=== PATIENT | female | born 1940 | race Caucasian/White ===

== ENCOUNTER 2020-05-13 06:02 | Emergency (ER) | payer OTHER ==
--- NOTE | 2020-05-13 06:45 | EDPHYS ---
Physician Documentation [facility] Name: Jonathan Mcguire Age: 79 yrs Sex: Female : 1940 Arrival Date: 05/13/2020 Time: 06:07 Bed 4 Private MD: ED Physician Sagrario Oliva HPI: 05/13 06:39 This 79 yrs old Female presents to ER via Ambulatory with complaints of Wrist ma2 Injury. 06:39 The patient or guardian reports decreased range of motion, injury, pain. Onset: The ma2 symptoms/episode began/occurred suddenly, 1 week(s) ago. Associated signs and symptoms: Pertinent negatives: decreased sensation distally, fever, numbness distally, tingling distally. Compartment Syndrome negative for numbness, pain, tingling. The patient has not experienced similar symptoms in the past. fell on left hand . Historical: - Allergies: 06:19 No Known Allergies; wh - Immunization history:: Adult Immunizations up to date. - Social history:: Smoking status: Patient/guardian denies using Patient/guardian denies using alcohol, street drugs, The patient lives with family. - Family history:: not pertinent. ROS: 06:39 Constitutional: Negative for fever, chills, and weight loss. ma2 06:39 All other systems are negative. Exam: 06:39 Hand exam: is negative for abrasion, deformity, erythema, swelling, Exam is positive ma2 for pain, tenderness, Circulation is intact in all extremities. sensation intact. Compartment Syndrome exam of affected extremity: is normal. 06:39 Skin: Exam negative for abrasion, burn, diaphoresis, flushing, mottling, pallor, poor turgor, rash. 06:39 Constitutional: This is a well developed, well nourished patient who is awake, alert, and in no acute distress. Chest/axilla: Normal chest wall appearance and motion. Nontender with no deformity. No lesions are appreciated. Cardiovascular: Regular rate and rhythm with a normal S1 and S2. No gallops, murmurs, or rubs. Normal PMI, no JVD. No pulse deficits. Respiratory: Lungs have equal breath sounds bilaterally, clear to auscultation and percussion. No rales, rhonchi or wheezes noted. No increased work of breathing, no retractions or nasal flaring. Skin: Warm, dry with normal turgor. Normal color with no rashes, no lesions, and no evidence of cellulitis. Neuro: Awake and alert, GCS 15, oriented to person, place, time, and situation. Cranial nerves II-XII grossly intact. Motor strength 5/5 in all extremities. Sensory grossly intact. Cerebellar exam normal. Normal gait. Psych: Awake, alert, with orientation to person, place and time. Behavior, mood, and affect are within normal limits. Vital Signs: 06:16 BP 154 / 93; Pulse 90; Resp 18; Temp 98.1; Pulse Ox 100% ; Weight 52.16 kg; Height 5 wh ft. 2 in. (157.48 cm); Pain 5/10; 06:16 Body Mass Index 21.03 (52.16 kg, 157.48 cm) MDM: 06:11 Patient medically screened. [facility] 06:39 Differential diagnosis: dislocation, contusion, abrasion, tendonitis. Data reviewed: [facility] vital signs, nurses notes. Counseling: I had a detailed discussion with the patient and/or guardian regarding: the historical points, exam findings, and any diagnostic results supporting the discharge/admit diagnosis, the presence of at least one elevated blood pressure reading (>120/80) during this emergency department visit, the need for outpatient follow up. Response to treatment: the patient's symptoms have markedly improved after treatment. 06:39 ED course: informed about possibility of scaphoid frx and need to repeat xr in 2 weeks, steve will put her in thumb spica. 12 06:15 Order name: Wrist Left (3 View) XRAY [facility] 05/13 06:47 Order name: Hand Left 3 View XRAY [facility] 05/13 06:47 Order name: Thumb Spica Splint: left; Complete Time: 07:07 [facility] Administered Medications: 06:40 Drug: [place] 5 mg-325 mg 1 tabs Route: PO; 07:07 Follow up: Response: No adverse reaction; Pain is decreased; RASS: Alert and Calm (0) Disposition: 05/13/20 06:44 Discharged to Home. Impression: Other specified sprain of left wrist. - Condition is Stable. - Discharge Instructions: Wrist Pain, [id number]. - Prescriptions for Diclofenac Sodium 75 mg Oral Tablet Sustained Release - take 1 tablet by ORAL route 2 times per day; 30 tablet. - Medication Reconciliation Form, Thank You Letter, Antibiotic Education, Prescription Opioid Use form. - Follow up: Private Physician; When: Tomorrow; Reason: Continuance of care. - Notes: follow up with pcp for repeat left hand xray in 2 weeks to rule out scaphoid fracture Signatures: Dispatcher [employer] EDIN Sheldon Stone Sagrario Rosenthal MD MD ma2 Corrections: (The following items were deleted from the chart) 06:52 06:16 Hand Right 3 View+RAD.RAD.BRZ ordered. [facility] EDIN 07:08 06:44 05/13/2020 06:44 Discharged to Home. Impression: Other specified sprain of left wh wrist. Condition is Stable. Forms are Medication Reconciliation Form, Thank You Letter, Antibiotic Education, Prescription Opioid Use. Follow up: Private Physician; When: Tomorrow; Reason: Continuance of care. ma2
--- NOTE | 2020-05-13 06:45 | ER ---
Nurse's Notes [facility] Name: Jonathan Mcguire Age: 79 yrs Sex: Female : 1940 Arrival Date: 05/13/2020 Time: 06:07 Bed 4 Private MD: Diagnosis: Other specified sprain of left wrist Presentation: 05/13 06:16 Chief complaint: Patient states: tripped and fell a week ago hurting her right wrist. wh Pt C/O of more pain on left wrist since fall. Coronavirus screen: Client denies travel out of the [place] in the last 14 days. At this time, the client does not indicate any symptoms associated with coronavirus-19. Ebola Screen: Patient negative for fever greater than or equal to 101.5 degrees Fahrenheit, and additional compatible Ebola Virus Disease symptoms Patient denies exposure to infectious person. Initial Sepsis Screen: Does the patient meet any 2 criteria? No. Patient's initial sepsis screen is negative. Does the patient have a suspected source of infection? No. Patient's initial sepsis screen is negative. Risk Assessment: Do you want to hurt yourself or someone else? Patient reports no desire to harm self or others. Onset of symptoms was May 13, 2020. 06:16 Method Of Arrival: Ambulatory 06:16 Acuity: SERA 4 Triage Assessment: 06:21 Injury Description: swelling. Historical: - Allergies: 06:19 No Known Allergies; wh - Immunization history:: Adult Immunizations up to date. - Social history:: Smoking status: Patient/guardian denies using Patient/guardian denies using alcohol, street drugs, The patient lives with family. - Family history:: not pertinent. Screenin:19 Abuse screen: Denies threats or abuse. Denies injuries from another. Nutritional screening: No deficits noted. Tuberculosis screening: No symptoms or risk factors identified. Fall Risk Fall in past 12 months (25 points). Assessment: 06:19 General: Appears in no apparent distress. Behavior is calm, cooperative, appropriate for age. Pain: Complains of pain in left wrist Pain currently is 5 out of 10 on a pain scale. Quality of pain is described as aching, Pain began 2-3 days ago. Neuro: Level of Consciousness is awake, alert, obeys commands, Oriented to person, place, time, situation, Appropriate for age. Cardiovascular: Capillary refill < 3 seconds. Respiratory: Airway is patent Respiratory effort is even, unlabored, Respiratory pattern is regular, symmetrical. GI: Abdomen is flat, non-distended. : No signs and/or symptoms were reported regarding the genitourinary system. EENT: No signs and/or symptoms were reported regarding the EENT system. Derm: Skin is intact, is healthy with good turgor, Skin is pink, warm \T\ dry. normal. Musculoskeletal: Circulation, motion, and sensation intact. Range of motion: limited in left wrist Swelling present in left wrist. Vital Signs: 06:16 BP 154 / 93; Pulse 90; Resp 18; Temp 98.1; Pulse Ox 100% ; Weight 52.16 kg; Height 5 wh ft. 2 in. (157.48 cm); Pain 5/10; 06:16 Body Mass Index 21.03 (52.16 kg, 157.48 cm) ED Course: 06:07 Patient arrived in ED. cl3 06:11 Sagrario Oliva MD is Attending Physician. ma2 06:16 Sheldon Stone is Primary Nurse. 06:19 Triage completed. 06:21 Arm band placed on left wrist. 06:21 Patient has correct armband on for positive identification. Bed in low position. Call light in reach. Side rails up X 1. Pulse ox on. NIBP on. 06:56 Wrist Left (3 View) XRAY In Process Unspecified. EDMS 06:58 Hand Left 3 View XRAY In Process Unspecified. EDMS 07:07 No provider procedures requiring assistance completed. Patient did not have IV access during this emergency room visit. Administered Medications: 06:40 Drug: [place] 5 mg-325 mg 1 tabs Route: PO; 07:07 Follow up: Response: No adverse reaction; Pain is decreased; RASS: Alert and Calm (0) Outcome: 06:44 Discharge ordered by . ma2 07:07 Discharged to home ambulatory, with family. 07:07 Condition: stable 07:07 Discharge instructions given to patient, family, Instructed on discharge instructions, follow up and referral plans. medication usage, POC Demonstrated understanding of instructions, follow-up care, medications, POC Prescriptions given X 1. 07:08 Patient left the ED. wh Signatures: Dispatcher [employer] EDSheldon Varela Sagrario Oliva MD MD ma2 Shelby Tubbs cl3 Corrections: (The following items were deleted from the chart) :49 06:16 Chief complaint: Patient states: tripped and fell a week ago hurting her right wh wrist. Pt C/O of more pain on right wrist since fall :49 06:19 Pain: Complains of pain in right wrist Pain currently is 5 out of 10 on a pain wh scale. Quality of pain is described as aching, Pain began 2-3 days ago. 06:50 06:19 Musculoskeletal: Circulation, motion, and sensation intact. Range of motion: wh limited in right wrist Swelling present in right wrist
[2020-05-13] MEDS ORDERED: HYDROCODONE/APAP 5/325 MG TAB ONE (06:53)
[2020-05-13 07:19] VITALS: BP 154/93; TEMP 98.1; O2SAT 100
--- NOTE | 2020-05-13 07:30 | RAD REPORT ---
EXAM DESCRIPTION: RAD - Wrist Left 3 View - 05/13/2020 6:56 am CLINICAL HISTORY: Left wrist pain status post injury FINDINGS: No fracture or dislocation is seen. Bones are osteoporotic If the patient continues to have symptoms to suggest an occult fracture then a followup plain film [place] in 7 days would be recommended
--- NOTE | 2020-05-13 07:34 | RAD REPORT ---
EXAM DESCRIPTION: RAD -Hand Left 3 View - 05/13/2020 6:57 am CLINICAL HISTORY: Left hand pain status post injury FINDINGS: No fracture or dislocation is seen. The bones are osteoporotic
== END 2020-05-13 07:08 | disposition home or self-care (01) ==
LOC: ER 06:02
DX: S63.592A Other specified sprain of left wrist, initial encounter (principal); W01.0XXA Fall on same level from slipping, tripping and stumbling without subsequent striking against object, initial encounter; Y93.01 Activity, walking, marching and hiking; Y92.9 Unspecified place or not applicable
CPT/HCPCS: 99284